=== PATIENT | male | born 1970 | race Caucasian/White ===

== ENCOUNTER 2021-01-02 14:11 | Emergency (ER) | payer OTHER, SELFPAY ==
[2021-01-02 14:25] VITALS: BP 111/65; PULSE 94; RESP 16; TEMP 37.7; O2SAT 96
--- NOTE | 2021-01-02 14:32 | ED.EAR ---
HPI - Ear Problem General Chief complaint: Ear Stated complaint: ear ache Time Seen by Provider: 01/02/21 15:04 Source: patient and RN notes reviewed Mode of arrival: ambulatory Limitations: no limitations History of Present Illness HPI Narrative: 50-year male presents concern for right ear pain. Reports the pain radiates to his right neck and head. Reports intermittent episodes of ear pain for the last several years, reports he wears earplugs at work and has been unable to put them in due to the pain. He denies any drainage from his ear, however reports tenderness. He denies cough, shortness of breath, rhinorrhea, nasal congestion, body aches, chills, sweats, fever. Denies any known sick contacts. MD Complaint: ear pain Location: right ear Related Data Allergies Allergy/AdvReac Type Severity Reaction Status Date / Time No Known Allergies Allergy Verified 01/02/21 14:15 Review of Systems Review of Systems: Narrative: CONSTITUTIONAL: Denies malaise, chills, sweats, or fever. EYES: Denies visual changes, redness, or discharge. ENT: Denies rhinorrhea, congestion, sinus pain,and sore throat. Reports right otalgia, tenderness CARDIOVASCULAR: Denies chest pain, palpitations, or edema. RESPIRATORY: Denies new cough or yspnea. GASTROINTESTINAL: Denies abdominal pain, nausea, vomiting, diarrhea SKIN: Denies rash or itching. MUSCULOSKELETAL: Denies myalgia. NEUROLOGIC: Denies headache. All systems reviewed & are unremarkable except as noted in HPI and below PMFSH Comments At time of signature, agree with nursing past medical, surgical, social and family history. There is no relevant family history pertinent to the presenting complaint Exam Narrative: Exam Narrative: GENERAL: Well-appearing, well-nourished, and in no acute distress. HEAD: Normocephalic EYES: PERRLA, conjunctivae clear ENT: Nares clear, turbinates erythematous, clear discharge. Mucous membranes moist. Left TM pearly alaniz with dull light reflex, right TM erythematous; right tragal tenderness. Oropharynx not erythematous without lesions. Tonsils not enlarged and without exudate, no drooling, no hoarseness, no trismus, uvula midline. NECK: Supple. No lymphadenopathy CHEST: Clear to auscultation, breath sounds equal. No wheezing, rhonchi, rales, or stridor. No respiratory distress, speaks in full sentences. HEART: Regular rate and rhythm. No murmur heard. SKIN: Warm, dry, no rash. NEURO: Alert and oriented x3. PSYCH: Normal mood and affect Course Course Emergency Course: Patient is aware of diagnosis, understands and agrees to treatment plan. Anticipatory guidance given. Patient agrees to follow-up as directed and is aware of reasons to seek care at the emergency department. Portions of this record may have been created with voice recognition software Vital Signs Vital signs: Vital Signs Temperature 99.8 F H 01/02/21 14:25 Pulse Rate 94 01/02/21 14:25 Respiratory Rate 16 01/02/21 14:25 Blood Pressure 111/65 01/02/21 14:25 Pulse Oximetry 96 01/02/21 14:25 Temperature 99.8 F H 01/02/21 14:25 Pulse Rate 94 01/02/21 14:25 Respiratory Rate 16 01/02/21 14:25 Blood Pressure 111/65 01/02/21 14:25 Pulse Oximetry 96 01/02/21 14:25 Reviewed. Medical Decision Making MDM Narrative Medical decision making narrative: Differential diagnosis considered: Chandler virus, strep pharyngitis, allergic rhinitis, upper respiratory tract infection, sinusitis, rhinosinusitis, nasopharyngitis. viral pharyngitis, otitis media, otitis externa, pneumonia, bronchitis, viral cough syndrome, viral syndrome, and influenza. Exam findings show no acute concerns or changes; patient is non-toxic appearing and is in no distress. Patient is appropriate for outpatient treatment and follow-up. Vital Signs Vital Signs: Vital Signs Temperature 99.8 F H 01/02/21 14:25 Pulse Rate 94 01/02/21 14:25 Respiratory Rate 16 01/02/21 14:25 Blood Pressure 111/65
== END 2021-01-02 15:29 | disposition home or self-care (01) ==
PROVIDERS: Emergency Provider Nurse Practitioner
DX: H66.91 Otitis media, unspecified, right ear (principal); Z20.822 Contact with and (suspected) exposure to COVID-19
CPT/HCPCS: 87426; 87804; 99203; C9803; G0463